=== PATIENT | male | born 1975 | race African-American/Black ===

== ENCOUNTER 2016-09-09 17:48 | Emergency (ER) | payer SELFPAY ==
[~2016-09-09] VITALS: Ht 188 cm; Wt 88.5 kg
[2016-09-09 17:48] VITALS: BP 148/96
[~2016-09-09 17:48] MED LIST: /PANT40TA OR; COLA100C2 OR; PERC5TAB8 OR; PERC7.5T8 OR; no home medications
[2016-09-09] MEDS ORDERED: NAPR500T PO (18:28)
[2016-09-09] MEDS ORDERED: PENI250T57 PO (18:28)
== END 2016-09-09 18:55 | disposition home or self-care (01) ==
LOC: M ED 18:36
DX: K04.7 Periapical abscess without sinus (principal)

== ENCOUNTER 2016-12-29 17:15 | Emergency (ER) | payer SELFPAY ==
[~2016-12-29] VITALS: Ht 188 cm; Wt 86.4 kg
[~2016-12-29 17:15] MED LIST changes: +NAPR500T PO; +PENI250T57 PO
[2016-12-29] MEDS ORDERED: KETOROLAC 30 MG/ML VIAL (J1885) IV ONE (17:45)
[2016-12-29 18:00] LABS: BASO # 0.1 K/mm3 (0.0-0.2); BASO % 0.9 % (0.0-1.0); EOS # 0.2 K/mm3 (0.0-0.50); LARGE UNSTAINED CELL # 0.2 K/mm3 (0.0-0.4); LYMPH # 2.4 K/mm3 (1.5-4.5); LYMPH % 21.9 % (24.0-44.0); MEAN CORPUSCULAR HEMOGLOBIN 35.9 pg (27.0-33.0); MEAN CORPUSCULAR HGB CONC 35.3 g/dl (32.0-36.5); MEAN CORPUSCULAR VOLUME 101.8 fl (80.0-96.0); MONO # 0.5 K/mm3 (0.0-0.8); MONO % 4.5 % (0.0-5.0); NEUTROPHILS # 7.5 K/mm3 (1.8-7.7); NEUTROPHILS % 68.8 % (36.0-66.0); PLATELET COUNT, AUTOMATED 361 k/mm3 (150-450); RED CELL DISTRIBUTION WIDTH 11.7 % (11.5-14.5)
--- NOTE | 2016-12-29 18:11 | REP ---
Clinical: Right flank pain. Comparison: 09/09/2015. Findings: Lung bases are clear. Visualized heart and pericardium normal. Liver, spleen, pancreas, gallbladder, bilateral adrenal glands and kidneys are normal for noncontrast evaluation. Specifically, no perinephric stranding, hydroureteronephrosis, intrarenal or obstructing ureteral calculi are identified. The enteric system is without obstruction or acute inflammatory process. Normal terminal ileum and appendix are identified in the right lower quadrant. Few scattered colonic diverticula noted without acute diverticulitis. Pelvis demonstrates collapsed bladder and age appropriate prostate/seminal vesicles. No pelvic fluid or ascites. No obvious adenopathy. Abdominal aorta without aneurysm. No free air. Surrounding musculoskeletal structures are intact and without focal abnormality. Impression: Normal noncontrast CT of the abdomen and pelvis. No acute abdominopelvic pathology appreciated. Signed by Saturnino Mackenzie MD 12/29/2016 06:03 P
[2016-12-29 18:19] LABS: ANION GAP 9 MEQ/L (8-16); BLOOD UREA NITROGEN 15 MG/DL (7-18); CALCIUM LEVEL 8.8 MG/DL (8.5-10.1); CARBON DIOXIDE LEVEL 25 MEQ/L (21-32); CHLORIDE LEVEL 104 MEQ/L (98-107); CREATININE FOR GFR 0.92 MG/DL (0.70-1.30); GLOMERULAR FILTRATION RATE > 60.0 (>60); GLUCOSE, FASTING 81 MG/DL (70-105); POTASSIUM SERUM 3.3 MEQ/L (3.5-5.1); SODIUM LEVEL 138 MEQ/L (136-145)
[2016-12-29] MEDS ORDERED: KETO10TAB PO (18:48)
[2016-12-29 18:59] VITALS: BP 123/83
== END 2016-12-29 19:00 | disposition home or self-care (01) ==
LOC: EDBD 17:15 → M ED 17:15
DX: R10.9 Unspecified abdominal pain (principal); Z72.0 Tobacco use
CPT/HCPCS: 74176; 80048; 81001; 85025; 86140; 87086; 96374; 99284; J1885

== ENCOUNTER 2017-10-19 12:45 | Emergency (ER) | payer SELFPAY ==
[2017-10-19 14:51] LABS: KETONE, URINE AUTO RFX NEGATIVE (NEGATIVE); LEUKOCYTE ESTERASE UR AUTO RFX NEGATIVE (NEGATIVE); MUCUS, URINE RFX SMALL (NEGATIVE); NITRITE, URINE AUTO RFX NEGATIVE (NEGATIVE); RBC, URINE AUTO RFX 4 /HPF (0-3); SPECIFIC GRAVITY UR AUTO RFX 1.014 (1.002-1.035); SQUAM EPITHELIAL CELL UR AURFX 0 /HPF (0-6); WBC, URINE AUTO RFX 0 /HPF (0-3)
[2017-10-19 16:27] LABS: CHLAMYDIA DNA AMPLIFICATION NEGATIVE (NEGATIVE); GC DNA AMPLIFICATION NEGATIVE (NEGATIVE)
== END 2017-10-19 16:17 | disposition left against medical advice (07) ==
LOC: M ED 12:45
DX: Z53.29 Procedure and treatment not carried out because of patient's decision for other reasons (principal)

== ENCOUNTER → 2017-10-21 | Outpatient (CLI) | payer OTHER ==
[2017-10-21 16:19] LABS: BASO # 0.1 10^3/uL (0.0-0.2); BASO % 0.8 % (0.0-1.0); EOS # 0.3 10^3/uL (0.0-0.50); EOS % 3.1 % (0.0-3.0); HEMATOCRIT 48.3 % (42.0-52.0); HEMOGLOBIN 17.2 g/dl (13.5-17.5); IMMATURE GRANULOCYTE % 0.3 % (0-3.0); LYMPH % 22.6 % (24.0-44.0); MEAN CORPUSCULAR HEMOGLOBIN 35.5 pg (27.0-33.0); MEAN CORPUSCULAR HGB CONC 35.6 g/dl (32.0-36.5); MEAN CORPUSCULAR VOLUME 99.6 fl (80.0-96.0); MONO # 1.1 10^3/uL (0.0-0.8); MONO % 12.7 % (0.0-5.0); NEUTROPHILS # 5.3 10^3/uL (1.8-7.7); NEUTROPHILS % 60.5 % (36.0-66.0); PLATELET COUNT, AUTOMATED 301 10^3/uL (150-450); RED BLOOD COUNT 4.85 10^6/uL (4.30-6.10); RED CELL DISTRIBUTION WIDTH 11.9 % (11.5-14.5); WHITE BLOOD COUNT 8.7 10^3/uL (4.0-10.0)
== END ==
LOC: M WUC 14:32
DX: K29.70 Gastritis, unspecified, without bleeding (principal)
CPT/HCPCS: 85025

== ENCOUNTER 2017-12-07 18:14 | Emergency (ER) | payer OTHER ==
[2017-12-07 20:06] LABS: BASO % 0.5 % (0.0-1.0); EOS # 0.2 10^3/uL (0.0-0.50); EOS % 1.9 % (0.0-3.0); HEMATOCRIT 45.2 % (42.0-52.0); HEMOGLOBIN 15.7 g/dl (13.5-17.5); IMMATURE GRANULOCYTE % 0.2 % (0-3.0); LYMPH # 1.3 10^3/uL (1.5-4.5); LYMPH % 15.2 % (24.0-44.0); MEAN CORPUSCULAR HEMOGLOBIN 35.2 pg (27.0-33.0); MEAN CORPUSCULAR HGB CONC 34.7 g/dl (32.0-36.5); MEAN CORPUSCULAR VOLUME 101.3 fl (80.0-96.0); MONO # 0.8 10^3/uL (0.0-0.8); MONO % 8.9 % (0.0-5.0); NEUTROPHILS # 6.2 10^3/uL (1.8-7.7); NEUTROPHILS % 73.3 % (36.0-66.0); PLATELET COUNT, AUTOMATED 244 10^3/uL (150-450); RED BLOOD COUNT 4.46 10^6/uL (4.30-6.10); RED CELL DISTRIBUTION WIDTH 12.4 % (11.5-14.5); WHITE BLOOD COUNT 8.5 10^3/uL (4.0-10.0)
[2017-12-07 20:17] LABS: KETONE, URINE AUTO RFX NEGATIVE (NEGATIVE); LEUKOCYTE ESTERASE UR AUTO RFX NEGATIVE (NEGATIVE); NITRITE, URINE AUTO RFX NEGATIVE (NEGATIVE); RBC, URINE AUTO RFX 4 /HPF (0-3); SPECIFIC GRAVITY UR AUTO RFX 1.021 (1.002-1.035); SQUAM EPITHELIAL CELL UR AURFX 0 /HPF (0-6); WBC, URINE AUTO RFX 1 /HPF (0-3)
[2017-12-07 20:28] LABS: ALBUMIN 3.9 GM/DL (3.2-5.2); ALBUMIN/GLOBULIN RATIO 0.91 (1.00-1.93); ALKALINE PHOSPHATASE 50 U/L (45-117); ALT/SGPT 43 U/L (12-78); ANION GAP 6 MEQ/L (8-16); AST/SGOT 31 U/L (7-37); BILIRUBIN,DIRECT 0.2 MG/DL (0.0-0.2); BILIRUBIN,TOTAL 0.8 MG/DL (0.2-1.0); BLOOD UREA NITROGEN 11 MG/DL (7-18); CALCIUM LEVEL 9.1 MG/DL (8.5-10.1); CARBON DIOXIDE LEVEL 28 MEQ/L (21-32); CHLORIDE LEVEL 106 MEQ/L (98-107); CREATININE FOR GFR 0.93 MG/DL (0.70-1.30); GLOMERULAR FILTRATION RATE > 60.0 (>60); GLUCOSE, FASTING 87 MG/DL (70-100); LIPASE 210 U/L (73-393); POTASSIUM SERUM 4.1 MEQ/L (3.5-5.1); SODIUM LEVEL 140 MEQ/L (136-145); TOTAL PROTEIN 8.2 GM/DL (6.4-8.2)
[2017-12-07] MEDS: METHOCARBAMOL 750 MG TAB PO (20:38)
[2017-12-07] MEDS: KETOROLAC 30 MG/ML VIAL (J1885) IV (20:39)
== END 2017-12-07 22:00 | disposition home or self-care (01) ==
LOC: M ED 18:14
DX: S39.012A Strain of muscle, fascia and tendon of lower back, initial encounter (principal); X58.XXXA Exposure to other specified factors, initial encounter; Y92.89 Other specified places as the place of occurrence of the external cause; R31.9 Hematuria, unspecified; Z87.442 Personal history of urinary calculi; K21.9 Gastro-esophageal reflux disease without esophagitis; F17.200 Nicotine dependence, unspecified, uncomplicated; Z90.49 Acquired absence of other specified parts of digestive tract; Z79.2 Long term (current) use of antibiotics; Z79.899 Other long term (current) drug therapy
CPT/HCPCS: J1885

== ENCOUNTER 2018-03-24 16:31 | Emergency (ER) | payer OTHER ==
[2018-03-24 17:10] LABS: BASO # 0.1 10^3/uL (0.0-0.2); BASO % 0.9 % (0.0-1.0); EOS # 0.3 10^3/uL (0.0-0.50); EOS % 4.3 % (0.0-3.0); HEMATOCRIT 45.4 % (42.0-52.0); HEMOGLOBIN 15.9 g/dl (13.5-17.5); IMMATURE GRANULOCYTE % 0.2 % (0-3.0); LYMPH # 1.8 10^3/uL (1.5-4.5); LYMPH % 28.2 % (24.0-44.0); MEAN CORPUSCULAR HEMOGLOBIN 34.4 pg (27.0-33.0); MEAN CORPUSCULAR VOLUME 98.3 fl (80.0-96.0); MONO # 0.9 10^3/uL (0.0-0.8); MONO % 13.5 % (0.0-5.0); NEUTROPHILS # 3.4 10^3/uL (1.8-7.7); NEUTROPHILS % 52.9 % (36.0-66.0); PLATELET COUNT, AUTOMATED 253 10^3/uL (150-450); RED BLOOD COUNT 4.62 10^6/uL (4.30-6.10); RED CELL DISTRIBUTION WIDTH 12.4 % (11.5-14.5); WHITE BLOOD COUNT 6.5 10^3/uL (4.0-10.0)
[2018-03-24 17:22] LABS: INR 0.86; PARTIAL THROMBOPLASTIN TIME 28.6 SECONDS (25.4-37.6); PROTHROMBIN TIME 11.8 SECONDS (12.1-14.4)
[2018-03-24 17:42] LABS: ALBUMIN 3.8 GM/DL (3.2-5.2); ALBUMIN/GLOBULIN RATIO 0.95 (1.00-1.93); ALKALINE PHOSPHATASE 57 U/L (45-117); ALT/SGPT 62 U/L (12-78); ANION GAP 7 MEQ/L (8-16); AST/SGOT 30 U/L (7-37); BILIRUBIN,DIRECT < 0.1 MG/DL (0.0-0.2); BILIRUBIN,TOTAL 0.4 MG/DL (0.2-1.0); BLOOD UREA NITROGEN 13 MG/DL (7-18); CALCIUM LEVEL 8.9 MG/DL (8.5-10.1); CARBON DIOXIDE LEVEL 23 MEQ/L (21-32); CHLORIDE LEVEL 108 MEQ/L (98-107); CPK CREATINE PHOSPHOKINASE 160 U/L (39-308); CREATININE FOR GFR 0.99 MG/DL (0.70-1.30); GLOMERULAR FILTRATION RATE > 60.0 (>60); GLUCOSE, FASTING 103 MG/DL (70-100); LIPASE 267 U/L (73-393); MB/CK RELATIVE INDEX 0.81 (< OR =4); POTASSIUM SERUM 4.2 MEQ/L (3.5-5.1); SODIUM LEVEL 138 MEQ/L (136-145); TOTAL PROTEIN 7.8 GM/DL (6.4-8.2); TROPONIN I < 0.02 NG/ML (< 0.10)
[2018-03-24] MEDS ORDERED: CHLORTHALIDONE 12.5MG PER 1/2 TABLET PO (18:00)
[2018-03-24] MEDS: CHLORTHALIDONE 25 MG TAB PO (18:23)
[2018-03-24] MEDS: ASPIRIN 81 MG CHEW TABLET PO (18:23)
[2018-03-24] MEDS: ATENOLOL 25 MG TAB PO (18:23)
== END 2018-03-24 18:39 | disposition home or self-care (01) ==
LOC: M ED 16:31
DX: I10 Essential (primary) hypertension (principal); R07.89 Other chest pain; K21.9 Gastro-esophageal reflux disease without esophagitis; K27.9 Peptic ulcer, site unspecified, unspecified as acute or chronic, without hemorrhage or perforation; Z79.899 Other long term (current) drug therapy
CPT/HCPCS: 71046

== ENCOUNTER 2018-05-05 20:19 | Emergency (ER) | payer OTHER ==
[~2018-05-05] VITALS: Ht 190.5 cm; Wt 97.7 kg
[~2018-05-05 20:19] MED LIST changes: +ATEN25TA PO; +CLEO300C2 PO; +KETO10TAB PO; +NAPR-50 PO; -NAPR500T PO; +OMEP40CA2; +ROBA500T PO; +TRAM50TA2 PO
[2018-05-05] MEDS ORDERED: LORazepam 1 MG TAB PO STA (20:56)
[2018-05-05] MEDS ORDERED: LOSARTAN 50 MG TAB PO ONE (21:00)
[2018-05-05 21:23] LABS: HEMATOCRIT 47.5 % (42.0-52.0); HEMOGLOBIN 17.1 g/dl (13.5-17.5); MEAN CORPUSCULAR HEMOGLOBIN 34.9 pg (27.0-33.0); MEAN CORPUSCULAR VOLUME 96.9 fl (80.0-96.0); PLATELET COUNT, AUTOMATED 218 10^3/uL (150-450); WHITE BLOOD COUNT 8.2 10^3/uL (4.0-10.0)
[2018-05-05 21:39] LABS: AMPHETAMINES LEVEL URINE NEGATIVE (NEGATIVE); BARBITURATES URINE NEGATIVE (NEGATIVE); BENZODIAZEPINES URINE NEGATIVE (NEGATIVE); CANNABINOIDS URINE NEGATIVE (NEGATIVE); COCAINE METABOLITE URINE NEGATIVE (NEGATIVE); METHADONE URINE NEGATIVE (NEGATIVE); OPIATES URINE NEGATIVE (NEGATIVE); PHENCYCLIDINE URINE NEGATIVE (NEGATIVE)
[2018-05-05 21:48] LABS: ACETAMINOPHEN LEVEL < 2.0 UG/ML (10.0-30.0); ALBUMIN 4.2 GM/DL (3.2-5.2); ALT/SGPT 119 U/L (12-78); BILIRUBIN,DIRECT 0.3 MG/DL (0.0-0.2); BILIRUBIN,TOTAL 0.8 MG/DL (0.2-1.0); BLOOD UREA NITROGEN 9 MG/DL (7-18); CALCIUM LEVEL 8.8 MG/DL (8.5-10.1); CARBON DIOXIDE LEVEL 24 MEQ/L (21-32); CHLORIDE LEVEL 108 MEQ/L (98-107); CREATININE FOR GFR 0.94 MG/DL (0.70-1.30); ETHYL ALCOHOL (ETHANOL) 0.378 % (0.000-0.010); GLOMERULAR FILTRATION RATE > 60.0 (>60); GLUCOSE, FASTING 95 MG/DL (70-100); POTASSIUM SERUM 3.8 MEQ/L (3.5-5.1); SALICYLATE LEVEL < 1.7 MG/DL (5.0-30.0); SODIUM LEVEL 141 MEQ/L (136-145); TOTAL PROTEIN 8.5 GM/DL (6.4-8.2)
[2018-05-06 14:27] VITALS: BP 129/87
== END 2018-05-06 14:36 | disposition home or self-care (01) ==
LOC: M ED 20:19
DX: F10.229 Alcohol dependence with intoxication, unspecified (principal); Y90.1 Blood alcohol level of 20-39 mg/100 ml; I10 Essential (primary) hypertension; F17.210 Nicotine dependence, cigarettes, uncomplicated
CPT/HCPCS: 36415; 80048; 80076; 80307; 84443; 85027; 99285; G0480

== ENCOUNTER 2019-05-13 16:28 | Emergency (ER) | payer OTHER, SELFPAY ==
[~2019-05-13] VITALS: Ht 188 cm; Wt 89.0 kg
[2019-05-13 16:28] VITALS: BP 147/89
[~2019-05-13 16:28] MED LIST changes: -/PANT40TA OR; -NAPR-50 PO; +NAPR-837 PO; -OMEP40CA2; +OMEP40CA97; +PROT1TAB2 OR
[2019-05-13] MEDS ORDERED: BIOF4GEL4 TOP (17:41)
[2019-05-13] MEDS ORDERED: ROBA750T4 PO (17:41)
[2019-05-13] MEDS ORDERED: LIDO5DIS41 TD (17:41)
[2019-05-13] MEDS ORDERED: NAPR-837 PO (17:41)
[2019-05-13] MEDS ORDERED: NAPROXEN 250 MG TAB PO ONE (17:45)
[2019-05-13] MEDS ORDERED: LIDOCAINE 5% (LIDODERM) PATCH TD ONE (17:45)
[2019-05-13] MEDS ORDERED: methocarbamoL 750 MG TAB PO ONE (17:45)
[2019-05-13] MEDS ORDERED: **NOTE PATIENT COMMENT** MISC XX SCH (21:00)
== END 2019-05-13 17:51 | disposition home or self-care (01) ==
LOC: M ED 16:28
DX: S39.012A Strain of muscle, fascia and tendon of lower back, initial encounter (principal); X50.0XXA Overexertion from strenuous movement or load, initial encounter; Y92.9 Unspecified place or not applicable; Y93.E6 Activity, residential relocation; Y99.9 Unspecified external cause status; F17.200 Nicotine dependence, unspecified, uncomplicated; Z79.899 Other long term (current) drug therapy

== ENCOUNTER 2019-05-29 19:47 | Emergency (ER) | payer SELFPAY ==
[~2019-05-29] VITALS: Ht 188 cm; Wt 88.0 kg
[~2019-05-29 19:47] MED LIST changes: +BIOF4GEL4 TOP; +LIDO5DIS41 TD; +ROBA750T4 PO
[2019-05-29 20:25] LABS: BASO % 0.6 % (0.0-1.0); EOS # 0.2 10^3/uL (0.0-0.5); HEMATOCRIT 44.5 % (42.0-52.0); HEMOGLOBIN 14.8 g/dl (13.5-17.5); LYMPH # 1.2 10^3/uL (1.5-5.0); LYMPH % 21.3 % (24.0-44.0); MEAN CORPUSCULAR HEMOGLOBIN 33.7 pg (27.0-33.0); MEAN CORPUSCULAR HGB CONC 33.3 g/dl (32.0-36.5); MEAN CORPUSCULAR VOLUME 101.4 fl (80.0-96.0); MONO # 0.6 10^3/uL (0.0-0.8); MONO % 10.5 % (0.0-5.0); NEUTROPHILS # 3.5 10^3/uL (1.5-8.5); NEUTROPHILS % 63.2 % (36.0-66.0); PLATELET COUNT, AUTOMATED 229 10^3/uL (150-450); RED BLOOD COUNT 4.39 10^6/uL (4.30-6.10); WHITE BLOOD COUNT 5.5 10^3/uL (4.0-10.0)
[2019-05-29 20:35] LABS: INR 1.02; PROTHROMBIN TIME 13.1 SECONDS (11.8-14.0)
[2019-05-29 20:46] LABS: ALBUMIN 3.4 GM/DL (3.2-5.2); ALT/SGPT 33 U/L (12-78); BILIRUBIN,DIRECT 0.2 MG/DL (0.0-0.2); BILIRUBIN,TOTAL 0.6 MG/DL (0.2-1.0); BLOOD UREA NITROGEN 12 MG/DL (7-18); CALCIUM LEVEL 8.9 MG/DL (8.5-10.1); CARBON DIOXIDE LEVEL 25 MEQ/L (21-32); CHLORIDE LEVEL 111 MEQ/L (98-107); CPK CREATINE PHOSPHOKINASE 200 U/L (39-308); CREATININE FOR GFR 0.88 MG/DL (0.70-1.30); GLOMERULAR FILTRATION RATE > 60.0 (>60); GLUCOSE, FASTING 101 MG/DL (70-100); LIPASE 235 U/L (73-393); POTASSIUM SERUM 4.1 MEQ/L (3.5-5.1); SODIUM LEVEL 142 MEQ/L (136-145); TOTAL PROTEIN 7.2 GM/DL (6.4-8.2); TROPONIN I < 0.02 NG/ML (< 0.10)
[2019-05-30 01:44] LABS: CK-MB VALUE MASS 1.9 NG/ML (<3.6); CPK CREATINE PHOSPHOKINASE 183 U/L (39-308); MB/CK RELATIVE INDEX 1.04 (< OR =4); TROPONIN I < 0.02 NG/ML (< 0.10)
[2019-05-30 02:22] VITALS: BP 147/83
--- NOTE | 2019-05-30 03:50 | REP ---
Clinical: Chest pain . Comparison: 03/24/2018 . Technique: PA and lateral. Findings: The mediastinum and cardiac silhouette are normal. The lung em are clear and without acute consolidation, effusion, or pneumothorax. The skeletal structures are intact and normal. Impression: 1. No acute cardiopulmonary process. Electronically Signed by Saturnino Mackenzie MD 05/30/2019 03:41 A
--- NOTE | 2019-05-30 12:31 | ECGEPIP ---
[facility] - ED Test Date: 2019-05-29 Pat Name: HILDA GRIFFITH Department: Room: - Gender: Male [employer]ural [employer]: : 1975 Requested By: KATT BRISENO Order Number: [id number] Reading MD: Willie José Measurements Intervals [place] Rate: 60 P: 64 PA: 154 QRS: 73 QRSD: 82 T: 58 QT: 388 QTc: 388 Interpretive Statements SINUS RHYTHM SIMILAR TO 03/24/18 Electronically Signed on 05-30-2019 12:31:08 EST by Willie José
--- NOTE | 2019-05-30 12:33 | ECGEPIP ---
[facility] - ED Test Date: 2019-05-30 Pat Name: HILDA GRIFFITH Department: Room: - Gender: Male Bradder: sb : 1975 Requested By: KATT BRISENO Order Number: [id number] Reading MD: Willie José Measurements Intervals [place] Rate: 60 P: 62 CT: 163 QRS: 72 QRSD: 79 T: 58 QT: 391 QTc: 391 Interpretive Statements SINUS RHYTHM SIMILAR TO PRIOR ON SAME DATE Electronically Signed on 05-30-2019 12:33:16 EST by Willie José
== END 2019-05-30 02:22 | disposition home or self-care (01) ==
LOC: M ED 19:47
DX: R07.9 Chest pain, unspecified (principal); F17.200 Nicotine dependence, unspecified, uncomplicated

== ENCOUNTER 2021-02-01 16:41 | Emergency (ER) | payer OTHER, SELFPAY ==
[~2021-02-01] VITALS: Ht 188 cm; Wt 100.6 kg
[~2021-02-01 16:41] MED LIST changes: +OMEP40CA4; -OMEP40CA97
[2021-02-01 18:14] LABS: BASO % 0.4 % (0.0-1.0); EOS # 0.1 10^3/uL (0.0-0.5); HEMATOCRIT 49.9 % (42.0-52.0); HEMOGLOBIN 17.3 g/dl (13.5-17.5); LYMPH # 1.4 10^3/uL (1.5-5.0); LYMPH % 15.1 % (24.0-44.0); MEAN CORPUSCULAR HEMOGLOBIN 34.4 pg (27.0-33.0); MEAN CORPUSCULAR HGB CONC 34.7 g/dl (32.0-36.5); MEAN CORPUSCULAR VOLUME 99.2 fl (80.0-96.0); MONO # 0.8 10^3/uL (0.0-0.8); MONO % 9.3 % (2.0-8.0); NEUTROPHILS # 6.7 10^3/uL (1.5-8.5); PLATELET COUNT, AUTOMATED 296 10^3/uL (150-450); RED BLOOD COUNT 5.03 10^6/uL (4.30-6.10); WHITE BLOOD COUNT 9.1 10^3/uL (4.0-10.0)
[2021-02-01 18:50] LABS: ALBUMIN 3.9 GM/DL (3.2-5.2); ALT/SGPT 30 U/L (12-78); BILIRUBIN,DIRECT 0.2 MG/DL (0.0-0.2); BILIRUBIN,TOTAL 0.9 MG/DL (0.2-1.0); BLOOD UREA NITROGEN 15 MG/DL (7-18); CALCIUM LEVEL 9.9 MG/DL (8.5-10.1); CARBON DIOXIDE LEVEL 28 MEQ/L (21-32); CHLORIDE LEVEL 106 MEQ/L (98-107); CREATININE FOR GFR 0.94 MG/DL (0.70-1.30); GLOMERULAR FILTRATION RATE > 60.0 (>60); GLUCOSE, FASTING 103 MG/DL (70-100); LIPASE 119 U/L (73-393); POTASSIUM SERUM 4.2 MEQ/L (3.5-5.1); SODIUM LEVEL 137 MEQ/L (136-145); TOTAL PROTEIN 8.5 GM/DL (6.4-8.2)
[2021-02-02] MEDS ORDERED: GI COCKTAIL 50ML BTL(HYOSCYAMINE/MAALOX/LIDOCAINE VISCOUS)(1:3:1) PO ONE (00:30)
[2021-02-02] MEDS ORDERED: SUCRALFATE 1 GM TAB PO ONE (00:30)
[2021-02-02 01:37] VITALS: BP 156/89
[2021-02-02] MEDS ORDERED: ONDA4TAB6 PO (01:48)
[2021-02-02] MEDS ORDERED: CARA1TAB6 PO (01:48)
--- NOTE | 2021-02-02 04:02 | REPVR ---
PROCEDURE INFORMATION: Exam: XR Complete Acute Abdomen Series Including Chest Exam date and time: 02/02/2021 1:12 AM Age: 45 years old Clinical indication: Other: Epigastric abd pain TECHNIQUE: Imaging protocol: XR complete acute abdomen series, including 2 or more views of the abdomen and a single view chest. COMPARISON: CR Chest, 2 view PA, Lat 05/29/2019 8:03 PM FINDINGS: Lungs: There are stable calcified granulomata versus vessels on end in the lungs. There is no significant consolidation. Pleural spaces: No pleural effusions or pneumothorax identified. Heart/Mediastinum: The heart is normal in size. Gastrointestinal tract: There is no dilation or gross thickening of the bowel. Intraperitoneal space: Normal. No free air. Bones/joints: No suspicious osseous lesions. No acute fractures. Soft tissues: Normal. IMPRESSION: 1. Unremarkable bowel gas pattern. 2. No evidence of acute pleural or pulmonary parenchymal disease. Electronically signed by: Yaima Murdock On 02/02/2021 04:01:08 AM
== END 2021-02-02 02:21 | disposition home or self-care (01) ==
LOC: M ED 16:41
DX: R10.84 Generalized abdominal pain (principal); R11.2 Nausea with vomiting, unspecified; I10 Essential (primary) hypertension; F17.210 Nicotine dependence, cigarettes, uncomplicated

== ENCOUNTER 2022-04-16 17:16 | Emergency (ER) | payer OTHER ==
[~2022-04-16] VITALS: Ht 188 cm; Wt 96.8 kg
[2022-04-16 17:16] VITALS: BP 137/82
[~2022-04-16 17:16] MED LIST changes: +CARA1TAB6 PO; +ONDA4TAB6 PO
== END 2022-04-16 22:34 | disposition left against medical advice (07) ==
LOC: M ED 17:16
DX: Z53.21 Procedure and treatment not carried out due to patient leaving prior to being seen by health care provider (principal)

== ENCOUNTER 2023-09-20 12:34 | Emergency (ER) | payer OTHER ==
[~2023-09-20 12:34] MED LIST changes: +AMLO25TA PO; +PROTPAK PO
[2023-09-20 12:55] VITALS: TEMP 98.3
[2023-09-20 13:24] LABS: BASO # 0.1 10^3/uL (0.0-0.2); BASO % 0.8 % (0.0-1.0); EOS # 0.1 10^3/uL (0.0-0.5); EOS % 1.4 % (0.0-3.0); HEMATOCRIT 45.1 % (42.0-52.0); LYMPH # 1.2 10^3/uL (1.5-5.0); LYMPH % 15.3 % (24.0-44.0); MEAN CORPUSCULAR HEMOGLOBIN 34.9 pg (27.0-33.0); MEAN CORPUSCULAR HGB CONC 35.5 g/dl (32.0-36.5); MEAN CORPUSCULAR VOLUME 98.5 fl (80.0-96.0); MONO # 0.7 10^3/uL (0.0-0.8); MONO % 9.3 % (2.0-8.0); NEUTROPHILS # 5.7 10^3/uL (1.5-8.5); NEUTROPHILS % 73.1 % (36.0-66.0); PLATELET COUNT, AUTOMATED 287 10^3/uL (150-450); RED BLOOD COUNT 4.58 10^6/uL (4.30-6.10); WHITE BLOOD COUNT 7.8 10^3/uL (4.0-10.0)
[2023-09-20] MEDS: ASPIRIN 81MG CHEW TABLET PO ONE (13:24)
[2023-09-20 13:30] VITALS: BP 154/97
[2023-09-20 13:48] LABS: BLOOD UREA NITROGEN 15 MG/DL (9-23); CALCIUM LEVEL 10.2 MG/DL (8.5-10.1); CARBON DIOXIDE LEVEL 22 MMOL/L (20-31); CHLORIDE LEVEL 107 MMOL/L (98-107); CK-MB VALUE MASS 1.7 NG/ML (<3.6); CREATININE FOR GFR 0.79 MG/DL (0.70-1.30); GLOMERULAR FILTRATION RATE > 60.0 (>60); GLUCOSE, FASTING 116 MG/DL (60-100); POTASSIUM SERUM 3.9 MMOL/L (3.5-5.1); SODIUM LEVEL 137 MMOL/L (136-145)
[2023-09-20 13:49] VITALS: O2SAT 99
[2023-09-20 13:49] LABS: CPK CREATINE PHOSPHOKINASE 198 U/L (46-171); MB/CK RELATIVE INDEX 0.85 (< OR =4)
[2023-09-20 14:51] LABS: CK-MB VALUE MASS 1.3 NG/ML (<3.6); CPK CREATINE PHOSPHOKINASE 198 U/L (46-171); MB/CK RELATIVE INDEX 0.65 (< OR =4)
== END 2023-09-20 15:41 | disposition home or self-care (01) ==
LOC: EDBD 12:34 → M ED 12:34
DX: I10 Essential (primary) hypertension (principal); F17.200 Nicotine dependence, unspecified, uncomplicated; Z91.013 Allergy to seafood

== ENCOUNTER 2023-11-06 14:35 | Emergency (ER) | payer OTHER ==
[~2023-11-06] VITALS: Ht 190.5 cm; Wt 99.8 kg
[~2023-11-06 14:35] MED LIST changes: +ONDA-282 PO; -ONDA4TAB6 PO
[2023-11-06 16:04] LABS: BASO # 0.1 10^3/uL (0.0-0.2); BASO % 0.7 % (0.0-1.0); EOS # 0.3 10^3/uL (0.0-0.5); EOS % 3.9 % (0.0-3.0); HEMATOCRIT 43.2 % (42.0-52.0); HEMOGLOBIN 15.4 g/dl (13.5-17.5); LYMPH # 1.5 10^3/uL (1.5-5.0); LYMPH % 20.5 % (24.0-44.0); MEAN CORPUSCULAR HEMOGLOBIN 35.6 pg (27.0-33.0); MEAN CORPUSCULAR HGB CONC 35.6 g/dl (32.0-36.5); MONO # 0.7 10^3/uL (0.0-0.8); MONO % 8.8 % (2.0-8.0); NEUTROPHILS # 4.9 10^3/uL (1.5-8.5); NEUTROPHILS % 65.7 % (36.0-66.0); PLATELET COUNT, AUTOMATED 260 10^3/uL (150-450); RED BLOOD COUNT 4.32 10^6/uL (4.30-6.10); WHITE BLOOD COUNT 7.5 10^3/uL (4.0-10.0)
[2023-11-06 16:37] LABS: ALKALINE PHOSPHATASE 61 U/L (46-116); ALT/SGPT 31 U/L (7.0-40); AST/SGOT 49 U/L (<34); BILIRUBIN,DIRECT 0.3 MG/DL (<0.4); BILIRUBIN,TOTAL 1.4 MG/DL (0.3-1.2); BLOOD UREA NITROGEN 11 MG/DL (9-23); CALCIUM LEVEL 9.7 MG/DL (8.5-10.1); CARBON DIOXIDE LEVEL 24 MMOL/L (20-31); CHLORIDE LEVEL 107 MMOL/L (98-107); CPK CREATINE PHOSPHOKINASE 243 U/L (46-171); CREATININE FOR GFR 0.72 MG/DL (0.70-1.30); GLOMERULAR FILTRATION RATE > 60.0 (>60); GLUCOSE, FASTING 92 MG/DL (60-100); LIPASE 46 U/L (12-53); MB/CK RELATIVE INDEX 0.82 (< OR =4); POTASSIUM SERUM 5.1 MMOL/L (3.5-5.1); SODIUM LEVEL 137 MMOL/L (136-145); TOTAL PROTEIN 7.5 G/DL (5.7-8.2)
[2023-11-06 16:40] LABS: D-DIMER QUANT < 0.27 ug/mL (<0.5); INR 0.99; PARTIAL THROMBOPLASTIN TIME 28.4 SECONDS (24.8-34.2); PROTHROMBIN TIME 12.8 SECONDS (12.5-14.5)
[2023-11-06 17:51] LABS: CK-MB VALUE MASS 1.6 NG/ML (<3.6)
[2023-11-06 17:52] LABS: MB/CK RELATIVE INDEX 0.75 (< OR =4)
[2023-11-06] MEDS ORDERED: AMLO2.5T3 PO (18:38)
[2023-11-06 18:45] VITALS: BP 140/89; O2SAT 99
[2023-11-06 18:58] VITALS: TEMP 98.9
== END 2023-11-06 19:01 | disposition home or self-care (01) ==
LOC: M ED 14:35
DX: I10 Essential (primary) hypertension (principal); R07.89 Other chest pain; F41.9 Anxiety disorder, unspecified; K21.9 Gastro-esophageal reflux disease without esophagitis; F17.210 Nicotine dependence, cigarettes, uncomplicated; Z91.013 Allergy to seafood; Z79.899 Other long term (current) drug therapy

== ENCOUNTER 2023-11-08 06:56 | Inpatient (IN) | payer OTHER ==
[~2023-11-08] VITALS: Ht 190.5 cm; Wt 99.3 kg
[~2023-11-08 06:56] MED LIST changes: +AMLO2.5T3 PO
[2023-11-08] MEDS ORDERED: PANT40TA29 (07:23)
[2023-11-08] MEDS: MAALOX 30 ML SUSP *UDC PO ONE (09:15)
[2023-11-08 10:01] LABS: BASO % 0.3 % (0.0-1.0); EOS # 0.1 10^3/uL (0.0-0.5); EOS % 0.5 % (0.0-3.0); HEMATOCRIT 44.5 % (42.0-52.0); HEMOGLOBIN 15.7 g/dl (13.5-17.5); LYMPH # 0.7 10^3/uL (1.5-5.0); MEAN CORPUSCULAR HEMOGLOBIN 35.2 pg (27.0-33.0); MEAN CORPUSCULAR HGB CONC 35.3 g/dl (32.0-36.5); MEAN CORPUSCULAR VOLUME 99.8 fl (80.0-96.0); MONO # 0.9 10^3/uL (0.0-0.8); MONO % 7.2 % (2.0-8.0); NEUTROPHILS # 10.1 10^3/uL (1.5-8.5); NEUTROPHILS % 85.7 % (36.0-66.0); PLATELET COUNT, AUTOMATED 255 10^3/uL (150-450); RED BLOOD COUNT 4.46 10^6/uL (4.30-6.10); WHITE BLOOD COUNT 11.7 10^3/uL (4.0-10.0)
[2023-11-08 10:04] LABS: ALBUMIN 3.8 G/DL (3.2-5.2); ALKALINE PHOSPHATASE 93 U/L (46-116); ALT/SGPT 258 U/L (7.0-40); AST/SGOT 535 U/L (<34); BILIRUBIN,TOTAL 4.8 MG/DL (0.3-1.2); BLOOD UREA NITROGEN 10 MG/DL (9-23); CALCIUM LEVEL 9.9 MG/DL (8.5-10.1); CARBON DIOXIDE LEVEL 20 MMOL/L (20-31); CHLORIDE LEVEL 107 MMOL/L (98-107); CK-MB VALUE MASS 1.5 NG/ML (<3.6); CPK CREATINE PHOSPHOKINASE 186 U/L (46-171); CREATININE FOR GFR 0.76 MG/DL (0.70-1.30); GLOMERULAR FILTRATION RATE > 60.0 (>60); GLUCOSE, FASTING 105 MG/DL (60-100); LIPASE 57 U/L (12-53); POTASSIUM SERUM 5.4 MMOL/L (3.5-5.1); SODIUM LEVEL 136 MMOL/L (136-145); TOTAL PROTEIN 7.5 G/DL (5.7-8.2)
[2023-11-08] MEDS: PIPERACILLIN/TAZOBACTAM SOD 4.5 GM in D5W MINI-BAG PLUS 50 ML IV ONE (10:53)
[2023-11-08] MEDS: NS 1,000 ML IV ONE ×2 (10:53→13:47)
[2023-11-08] MEDS ORDERED: NALOXONE INJ 0.4MG/1ML VIAL IV PRN (11:05)
[2023-11-08] MEDS ORDERED: MORPHINE 10 MG/ML 1ML VIAL IV PRN (11:05)
[2023-11-08] MEDS ORDERED: PANT40TA29 PO (12:37)
[2023-11-08] MEDS ORDERED: AMLO25TA PO (12:37)
[2023-11-08] MEDS ORDERED: HOME MED LIST COMPLETE! XX SCH (12:45)
[2023-11-08] MEDS: KETOROLAC 30 MG/ML 1ML VIAL IV SCH (13:16)
[2023-11-08 13:55] VITALS: BP 156/87; TEMP 98.8; O2SAT 97
[2023-11-08] MEDS ORDERED: HYDROMORPHONE HCL 0.5 MG/ 0.5 ML SYRINGE IV PRN (15:15)
[2023-11-08] MEDS: HYDROMORPHONE HCL 0.5 MG/ 0.5 ML SYRINGE IV ONE (15:30)
[2023-11-08] MEDS: D5W/0.45% SODIUM CHLORIDE 1,000 ML IV SCH (15:33)
[2023-11-08] MEDS: PIPERACILLIN/TAZOBACTAM SOD 4.5 GM in D5W MINI-BAG PLUS 50 ML IV SCH (18:25)
[2023-11-08 20:16] VITALS: BP 152/86; TEMP 99.1; O2SAT 100
[2023-11-08] MEDS: PANTOPRAZOLE 40MG VIAL IV SCH (20:20)
[2023-11-08] MEDS: amLODIPine 5 MG TAB PO SCH (20:21)
[2023-11-08] MEDS: NICOTINE 14 MG/24 HR TRANSDERMAL TD SCH (20:22)
[2023-11-09] VITALS (9 sets, daily range): BP systolic 121–145; BP diastolic 82–98; TEMP 98.4–99.5; O2SAT 95–100
[2023-11-09 05:43] LABS: BASO % 0.6 % (0.0-1.0); EOS # 0.3 10^3/uL (0.0-0.5); EOS % 4.2 % (0.0-3.0); HEMATOCRIT 43.3 % (42.0-52.0); HEMOGLOBIN 15.4 g/dl (13.5-17.5); LYMPH # 0.7 10^3/uL (1.5-5.0); LYMPH % 10.7 % (24.0-44.0); MEAN CORPUSCULAR HEMOGLOBIN 34.8 pg (27.0-33.0); MEAN CORPUSCULAR HGB CONC 35.6 g/dl (32.0-36.5); MEAN CORPUSCULAR VOLUME 97.7 fl (80.0-96.0); MONO # 0.4 10^3/uL (0.0-0.8); MONO % 5.4 % (2.0-8.0); NEUTROPHILS # 5.2 10^3/uL (1.5-8.5); NEUTROPHILS % 78.8 % (36.0-66.0); PLATELET COUNT, AUTOMATED 243 10^3/uL (150-450); RED BLOOD COUNT 4.43 10^6/uL (4.30-6.10); WHITE BLOOD COUNT 6.6 10^3/uL (4.0-10.0)
[2023-11-09 06:12] LABS: ALBUMIN 3.1 G/DL (3.2-5.2); ALKALINE PHOSPHATASE 126 U/L (46-116); ALT/SGPT 413 U/L (7.0-40); AST/SGOT 388 U/L (<34); BILIRUBIN,TOTAL 10.4 MG/DL (0.3-1.2); BLOOD UREA NITROGEN 7 MG/DL (9-23); CALCIUM LEVEL 9.9 MG/DL (8.5-10.1); CARBON DIOXIDE LEVEL 22 MMOL/L (20-31); CHLORIDE LEVEL 109 MMOL/L (98-107); CREATININE FOR GFR 0.93 MG/DL (0.70-1.30); GLOMERULAR FILTRATION RATE > 60.0 (>60); GLUCOSE, FASTING 117 MG/DL (60-100); POTASSIUM SERUM 3.9 MMOL/L (3.5-5.1); SODIUM LEVEL 137 MMOL/L (136-145); TOTAL PROTEIN 6.6 G/DL (5.7-8.2)
[2023-11-09] MEDS: GLUCAGON INJ 1MG VIAL As Ordered ONE (17:19)
[2023-11-09] MEDS: ISOVUE-300 61% 100ML VIAL As Ordered ONE (17:19)
[2023-11-09] MEDS ORDERED: SUCCINYLCHOLINE 100MG/5ML SYRINGE As Ordered ONE (18:00)
[2023-11-09] MEDS ORDERED: LIDOCAINE 2% INJ 100 MG/5 ML SYRINGE As Ordered ONE (18:00)
[2023-11-09] MEDS ORDERED: propofoL 200 MG/20 ML VIAL As Ordered ONE (18:00)
[2023-11-09] MEDS: HYDROMORPHONE HCL 0.5 MG/ 0.5 ML SYRINGE IV PRN (19:22)
[2023-11-10 03:45] VITALS: BP 129/79; TEMP 98.5; O2SAT 95
[2023-11-10 06:16] LABS: BASO # 0.1 10^3/uL (0.0-0.2); BASO % 0.8 % (0.0-1.0); EOS # 0.4 10^3/uL (0.0-0.5); EOS % 7.1 % (0.0-3.0); HEMATOCRIT 43.1 % (42.0-52.0); HEMOGLOBIN 15.2 g/dl (13.5-17.5); LYMPH # 1.1 10^3/uL (1.5-5.0); LYMPH % 18.9 % (24.0-44.0); MEAN CORPUSCULAR HEMOGLOBIN 34.9 pg (27.0-33.0); MEAN CORPUSCULAR HGB CONC 35.3 g/dl (32.0-36.5); MEAN CORPUSCULAR VOLUME 99.1 fl (80.0-96.0); MONO # 0.6 10^3/uL (0.0-0.8); MONO % 9.8 % (2.0-8.0); NEUTROPHILS # 3.8 10^3/uL (1.5-8.5); NEUTROPHILS % 63.2 % (36.0-66.0); PLATELET COUNT, AUTOMATED 228 10^3/uL (150-450); RED BLOOD COUNT 4.35 10^6/uL (4.30-6.10)
[2023-11-10 06:41] LABS: ALBUMIN 2.9 G/DL (3.2-5.2); ALKALINE PHOSPHATASE 116 U/L (46-116); ALT/SGPT 326 U/L (7.0-40); AST/SGOT 152 U/L (<34); BILIRUBIN,TOTAL 3.2 MG/DL (0.3-1.2); BLOOD UREA NITROGEN 7 MG/DL (9-23); CALCIUM LEVEL 9.8 MG/DL (8.5-10.1); CARBON DIOXIDE LEVEL 23 MMOL/L (20-31); CHLORIDE LEVEL 109 MMOL/L (98-107); GLOMERULAR FILTRATION RATE > 60.0 (>60); GLUCOSE, FASTING 100 MG/DL (60-100); POTASSIUM SERUM 3.5 MMOL/L (3.5-5.1); SODIUM LEVEL 139 MMOL/L (136-145); TOTAL PROTEIN 6.4 G/DL (5.7-8.2)
[2023-11-10 08:08] VITALS: BP 154/100; TEMP 98.4; O2SAT 98
[2023-11-10 09:00] VITALS: BP 135/81
[2023-11-10 12:00] VITALS: BP 139/86; TEMP 98.2; O2SAT 97
[2023-11-10 16:30] VITALS: BP 129/86; TEMP 98.8; O2SAT 96
[2023-11-10 19:45] VITALS: BP 131/89; TEMP 97.1; O2SAT 96
[2023-11-11] VITALS (9 sets, daily range): BP systolic 128–158; BP diastolic 66–96; TEMP 97.9–98.4; O2SAT 94–98
[2023-11-11 06:03] LABS: BASO # 0.1 10^3/uL (0.0-0.2); BASO % 0.9 % (0.0-1.0); EOS # 0.5 10^3/uL (0.0-0.5); HEMOGLOBIN 15.2 g/dl (13.5-17.5); LYMPH # 1.4 10^3/uL (1.5-5.0); LYMPH % 21.6 % (24.0-44.0); MEAN CORPUSCULAR HEMOGLOBIN 34.9 pg (27.0-33.0); MEAN CORPUSCULAR HGB CONC 35.3 g/dl (32.0-36.5); MEAN CORPUSCULAR VOLUME 98.9 fl (80.0-96.0); MONO # 0.6 10^3/uL (0.0-0.8); MONO % 9.9 % (2.0-8.0); NEUTROPHILS # 3.9 10^3/uL (1.5-8.5); NEUTROPHILS % 60.3 % (36.0-66.0); PLATELET COUNT, AUTOMATED 245 10^3/uL (150-450); RED BLOOD COUNT 4.35 10^6/uL (4.30-6.10); WHITE BLOOD COUNT 6.5 10^3/uL (4.0-10.0)
[2023-11-11 06:26] LABS: ALBUMIN 2.9 G/DL (3.2-5.2); ALKALINE PHOSPHATASE 101 U/L (46-116); ALT/SGPT 227 U/L (7.0-40); AST/SGOT 65 U/L (<34); BILIRUBIN,TOTAL 1.8 MG/DL (0.3-1.2); BLOOD UREA NITROGEN 9 MG/DL (9-23); CALCIUM LEVEL 9.9 MG/DL (8.5-10.1); CARBON DIOXIDE LEVEL 23 MMOL/L (20-31); CHLORIDE LEVEL 111 MMOL/L (98-107); CREATININE FOR GFR 0.85 MG/DL (0.70-1.30); GLOMERULAR FILTRATION RATE > 60.0 (>60); GLUCOSE, FASTING 91 MG/DL (60-100); POTASSIUM SERUM 3.7 MMOL/L (3.5-5.1); SODIUM LEVEL 139 MMOL/L (136-145); TOTAL PROTEIN 6.2 G/DL (5.7-8.2)
[2023-11-11] MEDS: NS 1,000 ML IV SCH (09:48)
[2023-11-11] MEDS ORDERED: fentaNYL 100 MCG/2 ML INJECTION As Ordered ONE (12:13)
[2023-11-11] MEDS ORDERED: LIDOCAINE 2% 100MG/5ML SDV (FOR ANES.) As Ordered ONE (12:13)
[2023-11-11] MEDS ORDERED: MIDAZOLAM INJ 2MG/2ML VIAL As Ordered ONE (12:13)
[2023-11-11] MEDS ORDERED: ROCURONIUM BROMIDE 50MG/5ML VIAL As Ordered ONE (12:14)
[2023-11-11] MEDS ORDERED: ACETAMINOPHEN 1000MG 100ML IV BAG As Ordered ONE (13:19)
[2023-11-11] MEDS: INDOCYANINE GREEN 25MG VIAL (IC-GREEN) As Ordered ONE (13:45)
[2023-11-11] MEDS: ceFAZolin 2 GM/D5W 50 ML IV BAG As Ordered ONE (13:45)
[2023-11-11] MEDS ORDERED: KETOROLAC 60MG 2ML VIAL As Ordered ONE (14:12)
[2023-11-11] MEDS ORDERED: ONDANSETRON 4MG 2ML VIAL As Ordered ONE (14:38)
[2023-11-11] MEDS ORDERED: SUGAMMADEX SODIUM 500 MG/5 ML VIAL (BRIDION) As Ordered ONE (14:38)
[2023-11-11] MEDS: LR 1,000 ML IV SCH (15:45)
[2023-11-11] MEDS ORDERED: ONDANSETRON 4MG 2ML VIAL IV PRN (15:45)
[2023-11-11] MEDS ORDERED: METOCLOPRAMIDE INJ 10MG/2ML VIAL IV PRN (15:45)
[2023-11-11] MEDS: HYDROMORPHONE HCL 0.5 MG/ 0.5 ML SYRINGE IV PRN (15:48)
[2023-11-11] MEDS: oxyCODONE 5MG TAB PO PRN (16:08)
[2023-11-11] MEDS: fentaNYL 100 MCG/2 ML INJECTION IV PRN (16:14)
[2023-11-12] VITALS: BP 132/85; TEMP 98.4; O2SAT 98
[2023-11-12 04:00] VITALS: BP 117/66; TEMP 98.1; O2SAT 96
[2023-11-12 06:25] LABS: BASO % 0.4 % (0.0-1.0); EOS # 0.1 10^3/uL (0.0-0.5); EOS % 1.2 % (0.0-3.0); HEMATOCRIT 42.3 % (42.0-52.0); HEMOGLOBIN 14.9 g/dl (13.5-17.5); LYMPH # 1.4 10^3/uL (1.5-5.0); LYMPH % 13.4 % (24.0-44.0); MEAN CORPUSCULAR HEMOGLOBIN 34.9 pg (27.0-33.0); MEAN CORPUSCULAR HGB CONC 35.2 g/dl (32.0-36.5); MEAN CORPUSCULAR VOLUME 99.1 fl (80.0-96.0); MONO % 10.1 % (2.0-8.0); NEUTROPHILS # 7.7 10^3/uL (1.5-8.5); NEUTROPHILS % 74.5 % (36.0-66.0); PLATELET COUNT, AUTOMATED 248 10^3/uL (150-450); RED BLOOD COUNT 4.27 10^6/uL (4.30-6.10); WHITE BLOOD COUNT 10.3 10^3/uL (4.0-10.0)
[2023-11-12 06:53] LABS: ALBUMIN 2.9 G/DL (3.2-5.2); ALKALINE PHOSPHATASE 91 U/L (46-116); ALT/SGPT 191 U/L (7.0-40); AST/SGOT 60 U/L (<34); BILIRUBIN,TOTAL 1.2 MG/DL (0.3-1.2); BLOOD UREA NITROGEN 8 MG/DL (9-23); CALCIUM LEVEL 10.3 MG/DL (8.5-10.1); CARBON DIOXIDE LEVEL 24 MMOL/L (20-31); CHLORIDE LEVEL 108 MMOL/L (98-107); CREATININE FOR GFR 0.82 MG/DL (0.70-1.30); GLOMERULAR FILTRATION RATE > 60.0 (>60); GLUCOSE, FASTING 102 MG/DL (60-100); POTASSIUM SERUM 4.1 MMOL/L (3.5-5.1); SODIUM LEVEL 138 MMOL/L (136-145); TOTAL PROTEIN 6.3 G/DL (5.7-8.2)
[2023-11-12 08:00] VITALS: BP 152/84; TEMP 98.4; O2SAT 98
[2023-11-12] MEDS ORDERED: ACETAMINOPHEN TAB 650MG DOSE (2X325MG) PO PRN (08:10)
[2023-11-12] MEDS: KETOROLAC 30 MG/ML 1ML VIAL IV PRN (09:03)
[2023-11-12] MEDS: PANTOPRAZOLE 40MG TAB (PROTONIX) PO SCH (09:03)
[2023-11-12] MEDS: oxyCODONE 5MG TAB PO PRN (10:26)
[2023-11-12 12:00] VITALS: BP 148/87; TEMP 97.7; O2SAT 96
[2023-11-12] MEDS ORDERED: OXYC-517 PO ×2 (13:56→13:59)
== END 2023-11-12 16:04 | disposition home or self-care (01) | DRG 263 ==
LOC: M ED 06:56 → EDBD 06:56 → M ED INP 10:59 → M MSPAV 13:53
PROVIDERS: ADMIT General Practice; ATTEND Internal Medicine Nephrology
PROC: 0DJ08ZZ Inspection of Upper Intestinal Tract, Via Natural or Artificial Opening Endoscopic (ICD-10-PCS; 2023-11-09)
PROC: 8E0W4CZ Robotic Assisted Procedure of Trunk Region, Percutaneous Endoscopic Approach (ICD-10-PCS; 2023-11-11)
PROC: 0FT44ZZ Resection of Gallbladder, Percutaneous Endoscopic Approach (ICD-10-PCS; principal; 2023-11-11 08:30)
DX: K80.00 Calculus of gallbladder with acute cholecystitis without obstruction (principal); E87.5 Hyperkalemia; K76.0 Fatty (change of) liver, not elsewhere classified; I10 Essential (primary) hypertension; F17.200 Nicotine dependence, unspecified, uncomplicated; K66.0 Peritoneal adhesions (postprocedural) (postinfection); R94.5 Abnormal results of liver function studies; R74.01 Elevation of levels of liver transaminase levels; Z91.013 Allergy to seafood; Z90.49 Acquired absence of other specified parts of digestive tract; Z87.11 Personal history of peptic ulcer disease; Z53.09 Procedure and treatment not carried out because of other contraindication; Z79.899 Other long term (current) drug therapy

== ENCOUNTER 2023-12-07 14:00 | Emergency (ER) | payer OTHER ==
[~2023-12-07] VITALS: Ht 188 cm; Wt 98.5 kg
[~2023-12-07 14:00] MED LIST changes: +OXYC-517 PO; +PANT40TA29; +PANT40TA29 PO
[2023-12-07 17:29] VITALS: BP 153/93; TEMP 98; O2SAT 99
[2023-12-07] MEDS ORDERED: DICL20GE TP (17:34)
== END 2023-12-07 17:45 | disposition home or self-care (01) ==
LOC: M ED 14:00
DX: S46.211A Strain of muscle, fascia and tendon of other parts of biceps, right arm, initial encounter (principal); X50.0XXA Overexertion from strenuous movement or load, initial encounter; I10 Essential (primary) hypertension; K21.9 Gastro-esophageal reflux disease without esophagitis; F17.200 Nicotine dependence, unspecified, uncomplicated; K27.9 Peptic ulcer, site unspecified, unspecified as acute or chronic, without hemorrhage or perforation; Z91.013 Allergy to seafood; Z79.899 Other long term (current) drug therapy; Y92.9 Unspecified place or not applicable; Y93.89 Activity, other specified; Y99.9 Unspecified external cause status

== ENCOUNTER 2024-02-29 10:42 | Emergency (ER) | payer OTHER ==
[~2024-02-29] VITALS: Ht 188 cm; Wt 97.7 kg
[~2024-02-29 10:42] MED LIST changes: +DICL20GE TP
[2024-02-29] MEDS ORDERED: OMEP-173 PO (10:58)
[2024-02-29 11:40] VITALS: BP 161/88
[2024-02-29] MEDS: amLODIPine 5 MG TAB PO ONE (11:40)
[2024-02-29] MEDS ORDERED: AMLO2.5T3 PO (12:46)
[2024-02-29 12:54] VITALS: BP 149/95; TEMP 97; O2SAT 99
== END 2024-02-29 13:00 | disposition home or self-care (01) ==
LOC: M ED 10:42
DX: I10 Essential (primary) hypertension (principal); R07.9 Chest pain, unspecified; Z91.013 Allergy to seafood; Z79.899 Other long term (current) drug therapy

== ENCOUNTER 2024-05-09 17:15 | Emergency (ER) | payer OTHER ==
[~2024-05-09] VITALS: Ht 190.5 cm; Wt 97.7 kg
[~2024-05-09 17:15] MED LIST changes: +OMEP-173 PO
[2024-05-09 17:24] VITALS: TEMP 98.3
[2024-05-09 17:42] LABS: BASO # 0.1 10^3/uL (0.0-0.2); BASO % 0.7 % (0.0-1.0); EOS # 0.1 10^3/uL (0.0-0.5); EOS % 0.8 % (0.0-3.0); HEMATOCRIT 43.4 % (42.0-52.0); HEMOGLOBIN 15.7 g/dl (13.5-17.5); LYMPH # 1.5 10^3/uL (1.5-5.0); LYMPH % 16.5 % (24.0-44.0); MEAN CORPUSCULAR HGB CONC 36.2 g/dl (32.0-36.5); MEAN CORPUSCULAR VOLUME 99.5 fl (80.0-96.0); NEUTROPHILS # 6.2 10^3/uL (1.5-8.5); NEUTROPHILS % 70.8 % (36.0-66.0); PLATELET COUNT, AUTOMATED 265 10^3/uL (150-450); RED BLOOD COUNT 4.36 10^6/uL (4.30-6.10); WHITE BLOOD COUNT 8.8 10^3/uL (4.0-10.0)
[2024-05-09 18:06] LABS: LIPASE 41 U/L (12-53)
[2024-05-09 18:09] LABS: ALBUMIN 3.8 G/DL (3.2-5.2); ALKALINE PHOSPHATASE 66 U/L (40-129); ALT/SGPT 21 U/L (7.0-40); AST/SGOT 21 U/L (<34); BILIRUBIN,DIRECT 0.3 MG/DL (<0.4); BILIRUBIN,TOTAL 1.1 MG/DL (0.3-1.2); BLOOD UREA NITROGEN 10 MG/DL (9-23); CALCIUM LEVEL 9.9 MG/DL (8.5-10.1); CARBON DIOXIDE LEVEL 23 MMOL/L (20-31); CHLORIDE LEVEL 105 MMOL/L (98-107); CK-MB VALUE MASS < 1.0 NG/ML (<3.6); CREATININE FOR GFR 0.71 MG/DL (0.70-1.30); GLOMERULAR FILTRATION RATE > 60.0 (>60); GLUCOSE, FASTING 92 MG/DL (60-100); POTASSIUM SERUM 3.9 MMOL/L (3.5-5.1); SODIUM LEVEL 137 MMOL/L (136-145); TOTAL PROTEIN 7.9 G/DL (5.7-8.2)
[2024-05-09 18:18] LABS: CPK CREATINE PHOSPHOKINASE 144 U/L (46-171); MB/CK RELATIVE INDEX 0.69 (< OR =4)
[2024-05-09 19:45] VITALS: BP 152/90; O2SAT 99
== END 2024-05-09 20:21 | disposition home or self-care (01) ==
LOC: M ED 17:15 → EDBD 17:15 → M ED 20:21
DX: R07.89 Other chest pain (principal); I10 Essential (primary) hypertension; F17.210 Nicotine dependence, cigarettes, uncomplicated; F12.10 Cannabis abuse, uncomplicated; F10.10 Alcohol abuse, uncomplicated; Z91.013 Allergy to seafood; Z79.899 Other long term (current) drug therapy

== ENCOUNTER → 2024-05-12 | Outpatient (CLI) | payer OTHER | LOC: M CARPUL 07:34 | PROVIDERS: ATTEND Internal Medicine Cardiovascular Disease | DX: R07.9 Chest pain, unspecified (principal); I10 Essential (primary) hypertension ==

== ENCOUNTER → 2024-06-20 | Outpatient (CLI) | payer OTHER | LOC: M CARPUL 14:44 | PROVIDERS: ATTEND Internal Medicine Cardiovascular Disease | DX: R94.31 Abnormal electrocardiogram [ECG] [EKG] (principal); I36.1 Nonrheumatic tricuspid (valve) insufficiency ==

== ENCOUNTER 2024-08-29 17:28 | Emergency (ER) | payer OTHER ==
[~2024-08-29] VITALS: Ht 190.5 cm; Wt 99.0 kg
[2024-08-29] MEDS ORDERED: AMLO1TAB24 (17:47)
[2024-08-29 18:21] LABS: BASO # 0.1 10^3/uL (0.0-0.2); BASO % 0.5 % (0.0-1.0); EOS # 0.1 10^3/uL (0.0-0.5); EOS % 1.5 % (0.0-3.0); HEMOGLOBIN 16.5 g/dl (13.5-17.5); LYMPH # 1.8 10^3/uL (1.5-5.0); LYMPH % 18.8 % (24.0-44.0); MEAN CORPUSCULAR HGB CONC 35.1 g/dl (32.0-36.5); MEAN CORPUSCULAR VOLUME 99.6 fl (80.0-96.0); MONO % 10.1 % (2.0-8.0); NEUTROPHILS # 6.5 10^3/uL (1.5-8.5); NEUTROPHILS % 68.8 % (36.0-66.0); PLATELET COUNT, AUTOMATED 321 10^3/uL (150-450); RED BLOOD COUNT 4.72 10^6/uL (4.30-6.10); WHITE BLOOD COUNT 9.4 10^3/uL (4.0-10.0)
[2024-08-29 18:47] LABS: LIPASE 34 U/L (12-53)
[2024-08-29 18:52] LABS: ALBUMIN 3.8 G/DL (3.2-5.2); ALKALINE PHOSPHATASE 80 U/L (40-129); ALT/SGPT 32 U/L (7.0-40); AST/SGOT 22 U/L (<34); BILIRUBIN,DIRECT 0.3 MG/DL (<0.4); BILIRUBIN,TOTAL 1.1 MG/DL (0.3-1.2); BLOOD UREA NITROGEN 8 MG/DL (9-23); CALCIUM LEVEL 10.3 MG/DL (8.5-10.1); CARBON DIOXIDE LEVEL 28 MMOL/L (20-31); CHLORIDE LEVEL 104 MMOL/L (98-107); CREATININE FOR GFR 0.75 MG/DL (0.70-1.30); GLOMERULAR FILTRATION RATE > 90.0 (>60); GLUCOSE, FASTING 96 MG/DL (60-100); POTASSIUM SERUM 4.9 MMOL/L (3.5-5.1); SODIUM LEVEL 137 MMOL/L (136-145); TOTAL PROTEIN 7.7 G/DL (5.7-8.2)
[2024-08-30] MEDS ORDERED: AMOX875T2 PO (03:41)
[2024-08-30] MEDS: AUGMENTIN 875 MG TAB PO ONE (04:05)
[2024-08-30 04:06] VITALS: BP 152/96; TEMP 96.9; O2SAT 97
== END 2024-08-30 04:07 | disposition home or self-care (01) ==
LOC: M ED 17:28
DX: K52.89 Other specified noninfective gastroenteritis and colitis (principal); K21.9 Gastro-esophageal reflux disease without esophagitis; I10 Essential (primary) hypertension; Z91.013 Allergy to seafood; Z79.2 Long term (current) use of antibiotics; Z79.899 Other long term (current) drug therapy